=== PATIENT | male | born 1965 | race Asian ===

== ENCOUNTER 2018-01-24 10:56 | Inpatient (IN) | payer OTHER, MEDICAID ==
[2018-01-19 13:26] LABS: BASOPHILS # (AUTO) 0.1 K/uL (0.0-0.2); BASOPHILS % (AUTO) 0.8 % (0.0-2.0); EOSINOPHILS # (AUTO) 0.3 K/uL (0.0-0.4); EOSINOPHILS % (AUTO) 2.9 % (0.0-4.0); HEMATOCRIT 46.8 % (36-54); HEMOGLOBIN 15.5 g/dL (14.0-18.0); LYMPHOCYTES # (AUTO) 3.5 K/uL (1.0-5.5); LYMPHOCYTES % (AUTO) 32.7 % (20.5-51.5); MEAN CORPUSCULAR HEMOGLOBIN 30 pg (27-31); MEAN CORPUSCULAR HGB CONC 33 % (32-36); MEAN CORPUSCULAR VOLUME 91 fL (79.0-98.0); NEUTROPHILS # (AUTO) 5.9 K/uL (1.8-7.7); NEUTROPHILS % (AUTO) 54.6 % (40.0-70.0); PLATELET COUNT (AUTO) 370 K/uL (130-430); RED BLOOD CELL COUNT(AUTO) 5.15 MIL/uL (4.2-6.2); RED CELL DISTRIBUTION WIDTH 12.8 % (9.0-15.0); WHITE BLOOD COUNT (AUTO) 10.8 K/uL (4.8-10.8)
[2018-01-19 13:40] LABS: CALCIUM 8.9 mg/dL (8.4-11.0); CREATININE 0.82 mg/dL (0.55-1.30); POTASSIUM 3.6 mmol/L (3.5-5.1)
[2018-01-19 13:46] LABS: ALBUMIN 3.4 g/dL (3.4-4.8); TOTAL BILIRUBIN 0.4 mg/dL (0.0-1.0)
[2018-01-19 14:24] LABS: PROTHROMBIN TIME 9.8 SECS (9.5-12.5)
[~2018-01-24] VITALS: Ht 188 cm; Wt 81.6 kg
[2018-01-24] MEDS ORDERED: MIDAZOLAM HCL 5 MG/5 ML VIAL IVP ONE (12:25)
[2018-01-24] MEDS ORDERED: PROPOFOL 200MG/ 20ML VIAL (DIPRIVAN) IV ONE (12:25)
[2018-01-24] MEDS ORDERED: ONDANSETRON HCL 4 MG/2 ML VIAL IVP ONE (12:25)
[2018-01-24] MEDS ORDERED: LR 1,000 ML IV.SOLN IV ONE (12:25)
[2018-01-24] MEDS ORDERED: PIPERACILLIN/TAZOBACTAM 3.375 GM/VIAL (ZOSYN) IV ONE (12:25)
[2018-01-24] MEDS ORDERED: NS IRRIG SOLN 1000 ML IR ONE (12:25)
[2018-01-24] MEDS ORDERED: PIPERACILLIN/TAZOBACTAM 3.375 GM/DEX-IS 50 ML PIGGYBACK IV ONE (13:03)
[2018-01-24] MEDS ORDERED: ONDANSETRON HCL 4 MG/2 ML VIAL IVP PRN ×2 (13:15→14:00)
[2018-01-24] MEDS ORDERED: fentaNYL CITRATE/PF 100 MCG/2 ML AMP IVP PRN ×2 (13:15)
[2018-01-24] MEDS ORDERED: KETOROLAC TROMETHAMINE 30 MG VIAL IVP PRN (13:15)
[2018-01-24] MEDS ORDERED: LIDOCAINE PF 1% 30ML(POUR BTL) INJ ONE (13:22)
[2018-01-24] MEDS ORDERED: metroNIDAZOLE 500 mg/NS 100 ML IV SCH (15:30)
[2018-01-24 15:45] VITALS: BP_SYST 100
[2018-01-24] MEDS: NACL 0.9% 1,000 ML IV SCH (17:45)
[2018-01-24] MEDS: CEFAZOLIN 2 GM IVPB PREMIX 50 ML IV SCH ×2 (17:50→22:32)
[2018-01-24 18:23] VITALS: BP_SYST 126
[2018-01-24] MEDS ORDERED: DIPHENHYDRAMINE INJ 50 MG/ML VIAL IVP PRN (19:15)
[2018-01-24 20:00] VITALS: BP_SYST 128
[2018-01-24] MEDS: VANCOMYCIN HCL 1,500 MG in NS 250 ML IV SCH (20:19)
[2018-01-24] MEDS: HYDROmorphone 1 MG INJ. 1 MG/ML AMPUL IVP PRN (20:20)
[2018-01-25 00:22] VITALS: BP_SYST 118
[2018-01-25] MEDS: NACL 0.9% 1,000 ML IV SCH ×3 (01:19→18:02)
[2018-01-25] MEDS: VANCOMYCIN HCL 1,500 MG in NS 250 ML IV SCH ×2 (05:25→17:56)
[2018-01-25 07:47] LABS: ALBUMIN 2.6 g/dL (3.4-4.8); CALCIUM 8.3 mg/dL (8.4-11.0); CREATININE 0.83 mg/dL (0.55-1.30); POTASSIUM 3.7 mmol/L (3.5-5.1); THYROID STIMULATING HORMONE 1.09 uIu/mL (0.34-4.82); TOTAL BILIRUBIN 0.6 mg/dL (0.0-1.0)
[2018-01-25 07:49] VITALS: BP_SYST 128
[2018-01-25] MEDS: HYDROmorphone 1 MG INJ. 1 MG/ML AMPUL IVP PRN ×2 (07:53→20:11)
[2018-01-25] MEDS: ACETAMINOPHEN 325 MG TABLET PO PRN ×2 (07:54→16:02)
[2018-01-25 08:04] LABS: EOSINOPHILS # (AUTO) 0.1 K/uL (0.0-0.4); HEMATOCRIT 40.5 % (36-54); HEMOGLOBIN 13.8 g/dL (14.0-18.0); LYMPHOCYTES # (AUTO) 2.5 K/uL (1.0-5.5); LYMPHOCYTES % (AUTO) 19.4 % (20.5-51.5); MEAN CORPUSCULAR HEMOGLOBIN 31 pg (27-31); MEAN CORPUSCULAR HGB CONC 34 % (32-36); MEAN CORPUSCULAR VOLUME 91 fL (79.0-98.0); MONOCYTES # (AUTO) 1.1 K/uL (0.0-1.0); MONOCYTES % (AUTO) 8.3 % (1.7-9.3); NEUTROPHILS # (AUTO) 9.1 K/uL (1.8-7.7); NEUTROPHILS % (AUTO) 71.3 % (40.0-70.0); PLATELET COUNT (AUTO) 326 K/uL (130-430); RED BLOOD CELL COUNT(AUTO) 4.47 MIL/uL (4.2-6.2); RED CELL DISTRIBUTION WIDTH 12.3 % (9.0-15.0); WHITE BLOOD COUNT (AUTO) 12.8 K/uL (4.8-10.8)
[2018-01-25 12:00] VITALS: BP_SYST 117
[2018-01-25 16:16] VITALS: BP_SYST 139
[2018-01-25] MEDS: CLINDAMYCIN 600 MG in D5W 50 ML IV SCH ×2 (16:58→23:53)
[2018-01-25 20:00] VITALS: BP_SYST 135
[2018-01-26 01:16] VITALS: BP_SYST 132
[2018-01-26] MEDS: CLINDAMYCIN 600 MG in D5W 50 ML IV SCH ×4 (05:18→23:28)
[2018-01-26] MEDS: VANCOMYCIN HCL 1,500 MG in NS 250 ML IV SCH ×2 (06:02→17:54)
[2018-01-26 06:57] LABS: BASOPHILS # (AUTO) 0.1 K/uL (0.0-0.2); BASOPHILS % (AUTO) 0.5 % (0.0-2.0); CALCIUM 8.1 mg/dL (8.4-11.0); CREATININE 0.87 mg/dL (0.55-1.30); EOSINOPHILS # (AUTO) 0.3 K/uL (0.0-0.4); EOSINOPHILS % (AUTO) 2.2 % (0.0-4.0); HEMATOCRIT 40.5 % (36-54); HEMOGLOBIN 13.5 g/dL (14.0-18.0); LYMPHOCYTES % (AUTO) 32.3 % (20.5-51.5); MEAN CORPUSCULAR HEMOGLOBIN 31 pg (27-31); MEAN CORPUSCULAR HGB CONC 33 % (32-36); MEAN CORPUSCULAR VOLUME 92 fL (79.0-98.0); MONOCYTES # (AUTO) 1.2 K/uL (0.0-1.0); MONOCYTES % (AUTO) 9.7 % (1.7-9.3); NEUTROPHILS # (AUTO) 6.6 K/uL (1.8-7.7); NEUTROPHILS % (AUTO) 55.3 % (40.0-70.0); PLATELET COUNT (AUTO) 319 K/uL (130-430); POTASSIUM 3.5 mmol/L (3.5-5.1); RED BLOOD CELL COUNT(AUTO) 4.42 MIL/uL (4.2-6.2); RED CELL DISTRIBUTION WIDTH 12.5 % (9.0-15.0); WHITE BLOOD COUNT (AUTO) 12.2 K/uL (4.8-10.8)
[2018-01-26 08:00] VITALS: BP_SYST 128
[2018-01-26] MEDS: NACL 0.9% 1,000 ML IV SCH ×3 (09:39→17:58)
[2018-01-26 12:00] VITALS: BP_SYST 131
[2018-01-26] MEDS: HYDROmorphone 1 MG INJ. 1 MG/ML AMPUL IVP PRN (16:55)
[2018-01-26 17:00] VITALS: BP_SYST 135
[2018-01-26] MEDS ORDERED: MULTIVITS,CA,MINERALS/IRON/FA 1 TABLET PO ONE (17:45)
[2018-01-26] MEDS ORDERED: CHOLECALCIFEROL (VITAMIN D3) 2,000 UNIT TABLET PO ONE (17:45)
[2018-01-26 20:23] VITALS: BP_SYST 118
[2018-01-26 23:34] VITALS: BP_SYST 117
[2018-01-27] MEDS: CLINDAMYCIN 600 MG in D5W 50 ML IV SCH ×2 (06:03→10:52)
[2018-01-27] MEDS: VANCOMYCIN HCL 1,500 MG in NS 250 ML IV SCH (06:04)
[2018-01-27 08:12] VITALS: BP_SYST 133
[2018-01-27] MEDS ORDERED: MULTIVITS,CA,MINERALS/IRON/FA 1 TABLET PO SCH (09:00)
[2018-01-27] MEDS ORDERED: CHOLECALCIFEROL (VITAMIN D3) 2,000 UNIT TABLET PO SCH (09:00)
[2018-01-27] MEDS ORDERED: INSULIN REGULAR, HUMAN 100 UNITS/ML, 10 ML VIAL (novoLIN R) SUBCUT PRN (10:00)
[2018-01-27] MEDS ORDERED: DEXTROSE 50% JECT 50 ML DISP.SYRIN IVP PRN (10:00)
[2018-01-27 10:18] VITALS: BP_SYST 119
[2018-01-27] MEDS: NACL 0.9% 1,000 ML IV SCH (10:28)
[2018-01-27 12:00] VITALS: BP_SYST 120
[2018-01-27 16:01] VITALS: BP_SYST 127
== END 2018-01-27 16:56 | disposition home or self-care (01) | DRG 574 ==
LOC: SDS 10:56 → SMU 10:57 → SDS 14:48 → SMU 21:40
PROVIDERS: ADMIT Surgery; ATTEND Surgery
PROC: 0JB70ZZ Excision of Back Subcutaneous Tissue and Fascia, Open Approach (ICD-10-PCS; 2018-01-24)
PROC: 0HX6XZZ Transfer Back Skin, External Approach (ICD-10-PCS; principal; 2018-01-24 13:00)
DX: L02.31 Cutaneous abscess of buttock (principal); G81.94 Hemiplegia, unspecified affecting left nondominant side; R45.851 Suicidal ideations; F33.2 Major depressive disorder, recurrent severe without psychotic features; R45.850 Homicidal ideations; R47.02 Dysphasia
CPT/HCPCS: 36415; 71046-TC; 80048; 80053; 80202-TC; 82962; 83036; 84443-TC; 85025; 85610-TC; 85730-TC; 87070; 87070-TC; 87081; 88304; 93005; 97116-GP; 97530-GP; C1755; J0690; J1170; J2001; J2250; J2405; J2543; J2704; J3370; J3490; J7030; J7050; J7060; J7120